=== PATIENT | male | born 1970 | race Caucasian/White ===

== ENCOUNTER 2020-07-10 10:45 | Emergency (ER) | payer BC ==
[~2020-07-10] VITALS: Ht 180.3 cm; Wt 88.5 kg
[2020-07-10] MEDS ORDERED: LIPITOR20 MG PO (10:57)
[2020-07-10] MEDS ORDERED: CELEXA40 MG (10:57)
== END 2020-07-10 11:37 | disposition home or self-care (01) ==
LOC: ER 10:45
DX: Z48.02 Encounter for removal of sutures (principal)

== ENCOUNTER 2020-08-22 09:36 | Emergency (ER) | payer BC ==
[~2020-08-22] VITALS: Ht 180.3 cm; Wt 88.5 kg
[~2020-08-22 09:36] MED LIST: CELEXA40 MG; LIPITOR20 MG PO
== END 2020-08-22 12:02 | disposition home or self-care (01) ==
LOC: ER 09:36
DX: S91.322A Laceration with foreign body, left foot, initial encounter (principal); W45.8XXA Other foreign body or object entering through skin, initial encounter; Y93.11 Activity, swimming; Y92.832 Beach as the place of occurrence of the external cause; Y99.8 Other external cause status

== ENCOUNTER 2020-08-22 20:58 | Emergency (ER) | payer BC ==
[~2020-08-22] VITALS: Ht 180.3 cm; Wt 88.5 kg
== END 2020-08-22 22:42 | disposition home or self-care (01) ==
LOC: ER 20:58
DX: T81.33XA Disruption of traumatic injury wound repair, initial encounter (principal); S91.322D Laceration with foreign body, left foot, subsequent encounter; W26.8XXD Contact with other sharp object(s), not elsewhere classified, subsequent encounter; Y84.8 Other medical procedures as the cause of abnormal reaction of the patient, or of later complication, without mention of misadventure at the time of the procedure